=== PATIENT | male | born 1950 | race African-American/Black ===

== ENCOUNTER → 2017-05-15 | Outpatient (CLI) | payer BC ==
[~2017-05-15] MED LIST: ADVIN50/60 INH; ASPCH81X PO; BNC/4025 PO; CANA1TAB6 PO; CLON0.3T PO; DILT300C21 PO; GLIM4TAB2 PO; MULT-506 PO; NSNN50 NAE; SIMV10TA2 PO
--- NOTE | 2017-05-15 07:56 | DIAGNOSTIC IMAGING REPORT ---
THYROID ULTRASOUND HISTORY: E04.2 Multinodular [id number] COMPARISON: 11/11/2015 FINDINGS: Right lobe: Maximum dimension 4.7 cm. Unchanging 1.5 cm nodule lower aspect right thyroid. Left lobe: Maximum dimension 4.8 cm. Several hypoechoic nodules unchanged. Isthmus: No nodules. IMPRESSION: Findings consistent with a multinodular thyroid. No change from the prior 2 studies. Electronically signed by: Carl Barron M.D. 05/15/2017 7:55 AM Dictated Date/Time: 05/15/2017 7:50 AM
== END | disposition home or self-care (01) ==
LOC: C.ULTRBC 07:14
PROVIDERS: ATTEND Internal Medicine Geriatric Medicine
DX: E04.2 Nontoxic multinodular goiter (principal)

== ENCOUNTER → 2018-02-23 | Outpatient (CLI) | payer BC ==
[~2018-02-23] MED LIST changes: +ASPI81TA28 PO; +ASTN NAE; +CLON-460 PO; +DILT300C PO; +FLNIN/ NAE; +HYZ/10015 PO; +NXM/40 PO; +PRED20TA PO; +SIMV-150 PO; +SITA50TA5 PO; +VNTHFA/IN INH
== END | disposition home or self-care (01) ==
LOC: C.LABBC 10:21
PROVIDERS: ATTEND Family Medicine Adult Medicine
DX: K21.9 Gastro-esophageal reflux disease without esophagitis (principal)

== ENCOUNTER 2018-02-26 18:03 | Emergency (ER) | payer BC ==
[~2018-02-26] VITALS: Ht 185.4 cm; Wt 104.2 kg
[~2018-02-26 18:03] MED LIST changes: -ASPI81TA28 PO; -ASTN NAE; -CLON-460 PO; -DILT300C PO; -FLNIN/ NAE; -HYZ/10015 PO; -NXM/40 PO; -PRED20TA PO; -SIMV-150 PO; -SITA50TA5 PO; -VNTHFA/IN INH
[2018-02-26 18:29] VITALS: TEMP 36.9; Ht 185.4 cm; Wt 104.2 kg
[2018-02-26] MEDS ORDERED: OPTIRAY 320 IV PRN (19:00)
--- NOTE | 2018-02-26 19:24 | EMERGENCY ROOM VISIT NOTE ---
History Report prepared by Dl: Marquise Rosa Under the Supervision of: Dr. Peewee Ohara M.D. First contact with patient: 18:44 Chief Complaint: THROAT PAIN/INJURY Stated Complaint: DIFFICULTY SWALLOWING History of Present Illness The patient is a 67 year old male who presents to the Emergency Room with complaints of intermittent, worsening, throat discomfort beginning six months ago. The patient states that he feels as though food gets caught in his throat when he eats. He notes that food feels like it first gets stuck at the top, then travels slowly downward, and then gets stuck at the bottom of his esophagus. He reports that he saw his doctor today, who stated that he might have scarring due to acid reflux. He notes that he has not had acid reflux in the past and does not feel any symptoms, but was put on Nexium just in case. He reports that he is able to drink liquids minimally but is unable to burp unless he opens up this throat. The patient states that his doctor told him that there was nothing wrong with his trachea. He denies any vomiting, diarrhea, fever, cough, and congestion. He notes that he had a chest X-RAY done today and has an endoscopy scheduled for 03/05/2018. He reports that he has a history of asthma and thyroid problems but states that his thyroid has not been found to be enlarged. Source of History: patient Onset: six months ago Position: tongue Timing: intermittent, worsening Associated Symptoms: No fevers, No cough, No vomiting, No diarrhea Note: The patient feels as though food gets caught in his throat. He denies any congestion. Review of Systems See HPI for pertinent positives & negatives. A total of 10 systems reviewed and were otherwise negative. Past Medical & Surgical Medical Problems: (1) Asthma Family History No pertinent family history stated. Social History Smoking Status: Never Smoker Marital Status: Housing Status: lives with family Occupation Status: employed Current/Historical Medications Scheduled Aspirin (Aspirin Ec), 81 MG PO DAILY Clonidine HCl (Clonidine HCl), 0.3 MG PO HS Diltiazem Hcl Coated Beads (Diltiazem Hcl Er), 300 MG PO DAILY Fluticasone Prop/Salmeterol (Advair Diskus 500/50 60 Dose), 1 PUFF INH BID Hctz/Losartan (Hyzaar 25MG/100MG), 1 TAB PO DAILY Multivitamin (Multivitamin), 1 TAB PO QAM Simvastatin (Simvastatin), 10 MG PO HS Sitagliptin-Metformin Hcl (Janumet), 1 TAB PO BID Scheduled PRN Albuterol Hfa (Ventolin Hfa), 2 PUFFS INH UD PRN for Rescue Azelastine Hcl (Astelin Nasal [place]), 2 SPRAYS CAROLINE BID PRN for Nasal Congestion Fluticasone Propionate (Fluticasone Propionate), 2 SPRAYS CAROLINE DAILY PRN for Allergy Symptoms Allergies Coded Allergies: No Known Allergies (Verified , 02/26/18) Uncoded Allergies: POLLEN,GRASS,MOLD (Allergy, Unknown, 01/09/03) Physical Exam Vital Signs Date Time Temp Pulse Resp B/P (MAP) Pulse Ox O2 Delivery O2 Flow Rate FiO2 02/26/18 22:19 89 17 137/74 98 02/26/18 20:32 89 18 140/88 99 Room Air 02/26/18 18:40 95 Room Air 02/26/18 18:29 36.9 104 20 134/86 96 Room Air Physical Exam GENERAL: Patient is in no acute distress. HEENT: No acute trauma, normocephalic atraumatic, mucous membranes moist, no nasal congestion, no scleral icterus. NECK: No stridor, no adenopathy, no meningismus, trachea is midline. LUNGS: Clear to auscultation bilaterally, no wheeze, no rhonchi, breath sounds equal. HEART: Subtle systolic murmur, mildly tachycardic with an occasional extra beat. ABDOMEN: Soft, nontender, bowel sounds positive, no hernias, no peritonitis. EXTREMITIES: No cyanosis or edema, full range of motion of all the joints without pain or difficulty, no signs for acute trauma. NEUROLOGIC: Oriented x 3, no acute motor or sensory deficits, no focal weakness. SKIN: No rash, no jaundice, no diaphoresis. Medical Decision & Procedures ER Provider Diagnostic Interpretation: Radiology results as stated below per my review and radiologist interpretation: CT OF THE CHEST WITH IV CONTRAST FINDINGS: The heart is moderately enlarged. There is no pericardial effusion. No enlarged axillary, mediastinal or hilar lymph nodes are present. There is mild dilatation of the proximal to mid esophagus. No extrinsic mass is present. Sensitivity for detection mucosal lesions is diminished given CT technique. There is no contrast extravasation. No pneumomediastinum is present. There is no pneumothorax or pleural effusion. Lungs are suboptimally assessed due to respiratory motion. There is mild pulmonary edema. Bony thorax and upper abdomen are unremarkable. IMPRESSION: 1. Mild dilatation of the proximal to mid esophagus. Oral contrast reaches the stomach. No contrast extravasation or pneumomediastinum. No extrinsic lesion. Decreased sensitivity for detection of mucosal abnormalities given CT technique. 2. Moderate cardiomegaly and mild pulmonary edema. Electronically signed by: Trent Bruce M.D. 02/26/2018 9:07 PM Laboratory Results 02/26/18 19:00 02/26/18 19:00 Test 02/26/18 19:00 Red Blood Count 4.66 M/uL (4.7-6.1) Mean Corpuscular Volume 84.8 fL (80-100) Mean Corpuscular Hemoglobin 29.0 pg (25-34) Mean Corpuscular Hemoglobin Concent 34.2 g/dl (32-36) RDW Standard Deviation 41.9 fL (36.4-46.3) RDW Coefficient of Variation 13.7 % (11.5-14.5) Mean Platelet Volume 8.3 fL (7.4-10.4) Anion Gap 7.0 mmol/L (3-11) Est Creatinine Clear Calc Drug Dose 86.1 ml/min Estimated GFR () 83.4 Estimated GFR (Non- 72.0 BUN/Creatinine Ratio 15.0 (10-20) Calcium Level 9.2 mg/dl (8.5-10.1) Troponin I 0.019 ng/ml (0-0.045) Laboratory results reviewed by me. ECG Per My Interpretation Indication: tachycardia Rate (beats per minute): 94 Rhythm: normal sinus Findings: LBBB, other (No PVCs, no concerning ST elevation) Comparison ECG Date: 03/22/2001 Change: Compared to prior, LBBB is new. ED Course 1844: The patient was evaluated in room A4. A complete history and physical exam was performed. 1848: Discussed the patient's case with Dr. Bruce - Radiology, [facility]. He states that a swallowing study would be difficult to obtain at this time of day but notes that a CT scan would be a reasonable study to get instead. 2203: Reevaluated the patient. Discussed results and discharge instructions: he verbalized understanding and agreement. The patient is ready for discharge. Medical Decision Differential diagnoses include: mediastinal mass, esophageal mass, esophageal stricture, esophageal scarring, and reflux. There is no leukocytosis or concerning anemia. No significant electrolyte abnormality or kidney failure. EKG shows a sinus rhythm, no acute ischemia. Cardiac enzyme testing 1 is not consistent with acute cardiac injury. Chest CT shows dilation to the proximal esophagus, the dye did make it down into the stomach. There was no mediastinal mass. The patient was reassured by his testing. He is being discharged to follow with GI for an endoscopy. A liquid and soft diet was suggested. At this point , the cause for his presentation is unclear. Blood Pressure Screening Patient's blood pressure: Elevated blood pressure Blood pressure disposition: Elevated BP felt to be situational Consults Time Called: 1845 Consulting Physician: Dr. Bruce - Radiology, [facility] Returned Call: 1848 Discussed the patient's case. He states that a swallowing study would be difficult to obtain at this time of day but notes that a CT scan would be a reasonable study to get instead. Impression Primary Impression: Difficulty swallowing Scribe Attestation The scribe's documentation has been prepared under my direction and personally reviewed by me in its entirety. I confirm that the note above accurately reflects all work, treatment, procedures, and medical decision making performed by me. Departure Information Dispostion Home / Self-Care Referrals Salvatore Roque M.D. (PCP) Forms HOME CARE DOCUMENTATION FORM, IMPORTANT VISIT INFORMATION, WORK / SCHOOL INSTRUCTIONS Patient Instructions My [facility] Additional Instructions soft, more liquid diet endoscopy as scheduled return if worsening no mass on the CT scan
[2018-02-26 19:39] LABS: HEMATOCRIT 39.5 % (42-52); HEMOGLOBIN 13.5 g/dL (14.0-18.0); MEAN CELL VOLUME 84.8 fL (80-100); MEAN CORPUSCULAR HGB CONC 34.2 g/dl (32-36); MEAN PLATELET VOLUME 8.3 fL (7.4-10.4); PLATELET COUNT 275 K/uL (130-400); RED CELL DISTRIBUTION WIDTH CV 13.7 % (11.5-14.5); RED CELL DISTRIBUTION WIDTH SD 41.9 fL (36.4-46.3); WHITE BLOOD COUNT 5.75 K/uL (4.8-10.8)
[2018-02-26 20:06] LABS: CALCIUM 9.2 mg/dl (8.5-10.1); CREATININE 1.07 mg/dl (0.60-1.40); POTASSIUM 3.6 mmol/L (3.5-5.1)
--- NOTE | 2018-02-26 21:09 | DIAGNOSTIC IMAGING REPORT ---
CT OF THE CHEST WITH IV CONTRAST CLINICAL HISTORY: Difficulty swallowing. Evaluate esophagus. COMPARISON STUDY: Chest CT February 04, 2014. TECHNIQUE: Following IV administration of 93 mL of [id number]-320, helical axial images of the chest were obtained. Sagittal and coronal reconstructions were viewed as well as maximal intensity projections on an independent 3-D workstation. A dose lowering technique was utilized adhering to the principles of ALARA. Oral contrast was administered immediately prior to this CT. CT DOSE: 590.91 mGy.cm FINDINGS: The heart is moderately enlarged. There is no pericardial effusion. No enlarged axillary, mediastinal or hilar lymph nodes are present. There is mild dilatation of the proximal to mid esophagus. No extrinsic mass is present. Sensitivity for detection mucosal lesions is diminished given CT technique. There is no contrast extravasation. No pneumomediastinum is present. There is no pneumothorax or pleural effusion. Lungs are suboptimally assessed due to respiratory motion. There is mild pulmonary edema. Bony thorax and upper abdomen are unremarkable. IMPRESSION: 1. Mild dilatation of the proximal to mid esophagus. Oral contrast reaches the stomach. No contrast extravasation or pneumomediastinum. No extrinsic lesion. Decreased sensitivity for detection of mucosal abnormalities given CT technique. 2. Moderate cardiomegaly and mild pulmonary edema. Electronically signed by: Trent Bruce M.D. 02/26/2018 9:07 PM Dictated Date/Time: 02/26/2018 8:59 PM
[2018-02-26] MEDS ORDERED: SIMV-150 PO (21:13)
[2018-02-26] MEDS ORDERED: DILT300C PO (21:13)
[2018-02-26] MEDS ORDERED: HYZ/10015 PO (21:13)
[2018-02-26] MEDS ORDERED: ASTN NAE (21:13)
[2018-02-26] MEDS ORDERED: ASPI81TA28 PO (21:13)
[2018-02-26] MEDS ORDERED: SITA50TA5 PO (21:13)
[2018-02-26] MEDS ORDERED: FLNIN/ NAE (21:13)
[2018-02-26] MEDS ORDERED: VNTHFA/IN INH (21:13)
[2018-02-26] MEDS ORDERED: CLON-460 PO (21:13)
[2018-02-26 22:19] VITALS: BP 137/74; PULSE 89; O2SAT 98
[2018-03-01] MEDS ORDERED: GLIM4TAB2 PO (10:49)
[2018-03-01] MEDS ORDERED: NXM/40 PO (10:50)
[2018-03-01] MEDS ORDERED: SIMV10TA2 PO (10:52)
[2018-03-01] MEDS ORDERED: PRED20TA PO (10:54)
== END 2018-02-26 22:25 | disposition home or self-care (01) ==
LOC: C.EDB 18:04 → C.EDA 22:25
DX: R13.10 Dysphagia, unspecified (principal); R03.0 Elevated blood-pressure reading, without diagnosis of hypertension; J45.909 Unspecified asthma, uncomplicated; E07.9 Disorder of thyroid, unspecified; Z79.82 Long term (current) use of aspirin; Z79.84 Long term (current) use of oral hypoglycemic drugs; Z91.048 Other nonmedicinal substance allergy status

== ENCOUNTER → 2018-03-02 | Outpatient (CLI) | payer BC ==
[~2018-03-02] MED LIST changes: -ASPCH81X PO; +ASPI81TA28 PO; +ASTN NAE; -BNC/4025 PO; -CANA1TAB6 PO; +CLON-460 PO; -CLON0.3T PO; +DILT300C PO; -DILT300C21 PO; +FLNIN/ NAE; +HYZ/10015 PO; -NSNN50 NAE; +NXM/40 PO; +PRED20TA PO; +SITA50TA5 PO; +VNTHFA/IN INH
== END | disposition home or self-care (01) ==
LOC: C.LABBC 08:10
PROVIDERS: ATTEND Internal Medicine Geriatric Medicine
DX: I51.7 Cardiomegaly (principal)

== ENCOUNTER → 2018-03-05 | Day surgery (SDC) | payer BC ==
[~2018-03-05] VITALS: Ht 185.4 cm; Wt 103.2 kg
[~2018-03-05] MED LIST changes: +LIDOCAINE HCL 2% 2 ML VIAL (20MG/ML) ONE; +PROPOFOL IV EMULSION 10 MG/ML 20 ML VIAL IV ONE
[2018-03-05 13:22] VITALS: Ht 185.4 cm; Wt 103.2 kg
[2018-03-05 13:52] VITALS: TEMP 36.5
--- NOTE | 2018-03-05 13:52 | Endo History and Physical ---
History & Physical Date of Service: Mar 05, 2018. Chief Complaint: Dysphagia Referring Physician: Yoni Roque History of Present Illness For EGD Past Surgical History Hx Cardiac Surgery: No Hx Internal Defibrillator: No Hx Pacemaker: No Hx Abdominal Surgery: No Hx of Implantable Prosthesis: No Hx Post-Op Nausea and Vomiting: No Hx Cancer Surgery: No Hx Thoracic Surgery: No Hx Orthopedic: No Hx Urinary Tract Surgery: No Family History None Social History Smoking Status: Never Smoker Hx Substance Use: No Hx Alcohol Use: Yes (OCCASSIONALLY) Allergies Coded Allergies: No Known Allergies (Verified , 03/05/18) Current Medications Reported Home Medications Medications Dose Route/Sig Max Daily Dose Days Date Category Dose Instructions Prednisone 20 Mg Tab 20 Mg PO UD 03/01/18 Reported TAPERING DOSE-RECENT APPT WITH MEDIA OPERATOR Zocor (Simvastatin) 10 Mg Tab 10 Mg PO QPM 03/01/18 Reported Nexium (Esomeprazole Magnesium) 40 Mg Capcr 40 Mg PO QAM 03/01/18 Reported Glimepiride 4 Mg Tab 4 Mg PO QAM 90 03/01/18 Reported Ventolin Hfa (Albuterol) 200 Puffs/15903 Mcg Aers 2 Puffs INH UD PRN 02/26/18 Reported Clonidine HCl 0.3 Mg Tab 0.3 Mg PO HS 02/26/18 Reported Fluticasone Propionate 120 Sprays/6000 Mcg Inha 2 Sprays CAROLIEN DAILY PRN 02/26/18 Reported Diltiazem Hcl Er (Diltiazem Hcl Coated Beads) 300 Mg Cap 300 Mg PO QAM 02/26/18 Reported Janumet (Sitagliptin-Metformin Hcl) 1 Tab Tab 1 Tab PO BID 02/26/18 Reported Astelin Nasal [place] (Azelastine Hcl) 200 Sprays/30 Ml [place] 2 Sprays CAROLINE BID PRN 02/26/18 Reported Hyzaar 25MG/100MG (HCTZ/Losartan Potassium) Tab 1 Tab PO QAM 02/26/18 Reported Aspirin Ec (Aspirin) 81 Mg Tab 81 Mg PO QAM 02/26/18 Reported Multivitamin (Multivitamins) Tab 1 Tab PO QAM 04/29/16 Reported Advair Diskus 500/50 60 Dose (Fluticasone Prop/Salmeterol) 1 Ea Aerp 1 Puff INH BID 04/29/16 Reported Vital Signs Weight (Kilograms): 103.18 Height (Feet): 6 Height (Inches): 1 Physical Exam General Appearance: WD/WN Respiratory/Chest: Respiratory effort: no dyspnea Cardiovascular: Heart Auscultation: RRR Abdomen: Inspection & Palpation: soft Assessment and Plan Dysphagia for EGD
--- NOTE | 2018-03-05 14:15 | Discharge Instructions ---
Endoscopy Patient Instructions Date / Procedure(s) Performed Mar 05, 2018. EGD Allergy Information Coded Allergies: No Known Allergies (Verified , 03/05/18) Discharge Date / Findings Mar 05, 2018. Dilated esophagus Medication Instructions Stopped Medication(s): DIABETES MEDICATION AND ASA AND STOP PREDNISONE. Restart Stopped Medication(s): resume meds Reported Home Medications Medications Dose Route/Sig Max Daily Dose Days Date Category Dose Instructions Prednisone 20 Mg Tab 20 Mg PO UD 03/01/18 Reported TAPERING DOSE-RECENT APPT WITH RECRUITMENT AND OUTREACH ASSISTANT Zocor (Simvastatin) 10 Mg Tab 10 Mg PO QPM 03/01/18 Reported Nexium (Esomeprazole Magnesium) 40 Mg Capcr 40 Mg PO QAM 03/01/18 Reported Glimepiride 4 Mg Tab 4 Mg PO QAM 90 03/01/18 Reported Ventolin Hfa (Albuterol) 200 Puffs/59141 Mcg Aers 2 Puffs INH UD PRN 02/26/18 Reported Clonidine HCl 0.3 Mg Tab 0.3 Mg PO HS 02/26/18 Reported Fluticasone Propionate 120 Sprays/6000 Mcg Inha 2 Sprays CAROLINE DAILY PRN 02/26/18 Reported Diltiazem Hcl Er (Diltiazem Hcl Coated Beads) 300 Mg Cap 300 Mg PO QAM 02/26/18 Reported Janumet (Sitagliptin-Metformin Hcl) 1 Tab Tab 1 Tab PO BID 02/26/18 Reported Astelin Nasal [place] (Azelastine Hcl) 200 Sprays/30 Ml [place] 2 Sprays CAROLINE BID PRN 02/26/18 Reported Hyzaar 25MG/100MG (HCTZ/Losartan Potassium) Tab 1 Tab PO QAM 02/26/18 Reported Aspirin Ec (Aspirin) 81 Mg Tab 81 Mg PO QAM 02/26/18 Reported Multivitamin (Multivitamins) Tab 1 Tab PO QAM 04/29/16 Reported Advair Diskus 500/50 60 Dose (Fluticasone Prop/Salmeterol) 1 Ea Aerp 1 Puff INH BID 04/29/16 Reported Provider Instructions Activity Restrictions - No exercising or heavy lifting for 24 hours. - Do not drink alcohol the day of the procedure. - Do not drive a car or operate machinery until the day after the procedure. - Do not make any important decisions or sign important papers in 24 hours after the procedure. Following Day: - Return to full activity which may include returning to work/school. Diet Start your diet with liquids and light foods (jello, soup, juice, toast). Then eat your usual diet if not nauseated. Treatment For Common After Affects For mild abdominal pain, bloating, or excessive gas: - Rest - Eat lightly - Lie on right side Office will call to arrange Manometry at [facility] Follow-Up Information Follow-up with DR. DURBIN as scheduled Anesthesia Information What You Should Know You have had a procedure that required some medicine to reduce anxiety and discomfort. This treatment is called moderate sedation. After receiving the treatment, you may be sleepy, but you will be able to breathe on your own. The effects of the treatment may last for several hours. Follow these instructions along with Activity/Diet recommendations noted above: * Do NOT do anything where dizziness or clumsiness would be dangerous. * Rest quietly at home today, then you can be up and about tomorrow. * Have a responsible person stay with you the rest of today. * You may have had an I.V. today. If so, you may take the dressing off later today. Recommendations Call your doctor if: * Trouble breathing * Continuous vomiting for more than 24 hours * Temperature above 101 degrees * Severe abdominal pain or bloating * Pain not relieved by pain medicine ordered * There is increased drainage or redness from any incision * A large amount of rectal bleeding greater than 2-3 tablespoons. (If you had a polyp/s removed or have hemorrhoids, a small amount of blood - from the rectum is to be expected.) * You have any unanswered questions or concerns. IN THE EVENT OF A SERIOUS EMERGENCY, GO TO THE NEAREST EMERGENCY ROOM Your discharge instructions were prepared by provider Sam Goldberg. Patient Instructions Signature Page Carmela Teixeira Patient (or Guardian) Signature/Date: I have read and understand the instructions given to me by my caregivers. Caregiver/RN/Doctor Signature/Date: The above-named patient and/or guardian has received patient instructions on this date. + Original Patient Signature Page (only) stays with chart. Please make copy for patient.
--- NOTE | 2018-03-05 14:18 | GI REPORT ---
Procedure Date: 03/05/2018 1:49 PM Procedure: Upper GI endoscopy Indications: Dysphagia, Abnormal CT of the GI tract Medicines: Propofol total dose 80 mg IV, Lidocaine 80 mg IV Complications: No immediate complications. Estimated Blood Loss: Estimated blood loss: none. Procedure: Pre-Anesthesia Assessment: - Prior to the procedure, a History and Physical was performed, and patient medications, allergies and sensitivities were reviewed. The patient's tolerance of previous anesthesia was reviewed. - The risks and benefits of the procedure and the sedation options and risks were discussed with the patient. All questions were answered and informed consent was obtained. After obtaining informed consent, the endoscope was passed under direct vision. Throughout the procedure, the patient's blood pressure, pulse, and oxygen saturations were monitored continuously. The scope was introduced through the mouth, and advanced to the second part of duodenum. The upper GI endoscopy was accomplished without difficulty. The patient tolerated the procedure well. Findings: The lumen of the esophagus was moderately dilated. The Z-line was regular and was found 47 cm from the incisors. The entire examined stomach was normal. The examined duodenum was normal. Impression: - Dilation in the entire esophagus. - Z-line regular, 47 cm from the incisors. - Normal stomach. - Normal examined duodenum. - No specimens collected. Recommendation: - Discharge patient to home (ambulatory). - Continue present medications. - Perform routine esophageal manometry at appointment to be scheduled. - Return to primary care physician PRN. Sam Goldberg M.D. Sam Goldberg MD 03/05/2018 2:18:37 PM This report has been signed electronically. Note Initiated On: 03/05/2018 1:49 PM I attest to the content of the Intraoperative Record and orders documented therein, exceptions below
[2018-03-05 14:49] VITALS: BP 102/64; PULSE 78; O2SAT 100
--- NOTE | 2018-03-05 15:36 | Anesthesiology Progress Note ---
Anesthesia Post Op Note Date & Time Mar 05, 2018 at 15:36 Vital Signs Pain Intensity: 0 Vital Signs Past 12 Hours Date Time Temp Pulse Resp B/P (MAP) Pulse Ox O2 Delivery O2 Flow Rate FiO2 03/05/18 14:49 78 18 102/64 (77) 100 Room Air 03/05/18 14:34 82 18 110/66 (81) 100 Room Air 03/05/18 14:19 82 18 95/62 (73) 97 Room Air 03/05/18 13:52 36.5 65 18 129/78 (95) 95 Room Air Notes Mental Status: alert / awake / arousable, participated in evaluation Pt Amnestic to Procedure: Yes Nausea / Vomiting: adequately controlled Pain: adequately controlled Airway Patency, RR, SpO2: stable & adequate BP & HR: stable & adequate Hydration State: stable & adequate Anesthetic Complications: no major complications apparent
== END | disposition home or self-care (01) ==
LOC: C.GI 12:22
PROVIDERS: ATTEND Internal Medicine Gastroenterology
DX: R13.10 Dysphagia, unspecified (principal); R93.3 Abnormal findings on diagnostic imaging of other parts of digestive tract; J45.909 Unspecified asthma, uncomplicated; I10 Essential (primary) hypertension; I48.91 Unspecified atrial fibrillation; E11.9 Type 2 diabetes mellitus without complications; Z79.82 Long term (current) use of aspirin